=== PATIENT | female | born 1985 ===

== ENCOUNTER 2024-02-02 11:10 | Emergency (ER) | payer MEDICAID, OTHER ==
[~2024-02-02] VITALS: Ht 167.6 cm; Wt 100.0 kg
[2024-02-02] MEDS ORDERED: IBUPROFEN 600 MG TABLET PO ONE (15:00)
[2024-02-02 15:25] VITALS: BP 152/95; PULSE 87; RESP 21; TEMP 97.9
== END 2024-02-02 15:50 | disposition left against medical advice (07) ==
LOC: EMS 11:14
DX: S80.02XA Contusion of left knee, initial encounter (principal); W01.0XXA Fall on same level from slipping, tripping and stumbling without subsequent striking against object, initial encounter; Y93.89 Activity, other specified; Y92.89 Other specified places as the place of occurrence of the external cause; Y99.8 Other external cause status
CPT/HCPCS: 99283